=== PATIENT | male | born 1945 | race Hispanic/Latino ===

== ENCOUNTER 2019-02-24 08:05 | Day surgery (SDC) | payer MEDICARE, OTHER ==
[2019-02-24] MEDS ORDERED: SODIUM CHLORIDE 0.9% 1000 ML 1,000 ML IV SCH (08:45)
[2019-02-24] MEDS ORDERED: PROPOFOL 200 MG/20 ML VIAL IV ONE (09:25)
[2019-02-24] MEDS ORDERED: SODIUM CHLORIDE 0.9% 1000 ML 1,000 ML ONE (09:28)
[2019-02-24 09:39] LABS: INR 1.64 (0.87-1.13)
[2019-02-24 09:40] LABS: Partial Thromboplastin Time 33.8 Sec. (24.2-36.6)
[2019-02-24 09:47] LABS: BUN/Creatinine Ratio 23; Blood Urea Nitrogen 23 mg/dL (9-20); Calcium 8.7 mg/dL (8.4-10.2); Hemolysis Index 3
--- NOTE | 2019-02-24 09:58 | Anesthesia Day of Surgery ---
Anesthesia Day of Surgery - Day of Surgery Patient Examined: Yes Patient H&P Reviewed: Yes Patient is NPO: Yes Beta Blockers: Yes
[2019-02-24 10:01] LABS: Basophils # (Auto) 0.1 K/mm3 (0.0-0.1); Basophils % (Auto) 0.8 % (0.0-1.8); Eosinophils # (Auto) 0.1 K/mm3 (0.0-0.4); Eosinophils % (Auto) 1.4 % (0.0-4.3); Hematocrit 34.5 % (35.5-45.6); Hemoglobin 10.8 gm/dl (11.8-15.2); Lymphocytes # (Auto) 1.1 K/mm3 (1.2-5.4); Lymphocytes % (Auto) 18.2 % (13.4-35.0); Mean Corpuscular HGB Conc 31 % (32-34); Mean Corpuscular Volume 78 fl (84-94); Monocytes # (Auto) 0.7 K/mm3 (0.0-0.8); Monocytes % (Auto) 11.8 % (0.0-7.3); Platelet Count 226 K/mm3 (140-440); Red Blood Count 4.43 M/mm3 (3.65-5.03)
--- NOTE | 2019-02-24 10:01 | Anesthesia Consultation ---
Anesthesia Consult and Med Hx Date of service: 02/24/19 - Airway Anesthetic Teeth Evaluation: Chipped, Crowns ROM Head & Neck: Adequate Mental/Hyoid Distance: Adequate Mallampati Class: Class II Intubation Access Assessment: Probably Good - Pre-Operative Health Status ASA Pre-Surgery Classification: ASA3 Proposed Anesthetic Plan: General, MAC - Pulmonary Hx Smoking: No Hx Respiratory Symptoms: Yes (LYONS from A-Fib) - Cardiovascular System Hx Hypertension: Yes (ECHO [id number] EF 50%) Hx Cardia Arrhythmia: Yes (A-Fib) Hx Valvular Heart Disease: Yes (Had AVR and MV repair [id number]) Hx Heart Murmur: Yes - Central Nervous System Hx Psychiatric Problems: No - Other Systems Hx Alcohol Use: Yes Hx Cancer: Yes
[2019-02-24 10:03] LABS: Red Cell Distribution Width 20.7 % (13.2-15.2)
[2019-02-24] MEDS ORDERED: LIDOCAINE MPF (2%) 20 MG/1 ML VIAL 5 ML ONE (10:30)
--- NOTE | 2019-02-24 11:27 | Post Anesthesia Evaluation ---
- Post Anesthesia Evaluation Patient Participated: Yes Airway Patent: Yes Stable Respiratory Function: Yes Nausea/Vomiting: No Temp > 96.8F: Yes Pain Manageable: Yes Adequeate Hydration: Yes Anesthesia Complications: No Block Receding Appropriately: Not Applicable Patient on Ventilator: No
--- NOTE | 2019-02-24 12:03 | Cardiac Catherization Report ---
REFERRING PHYSICIAN: Pino Francis MD. INDICATION FOR PROCEDURE: The patient is an exceedingly pleasant 73-year-old gentleman who lives in [place] who saw him yesterday in the office having symptomatic atrial fibrillation with controlled ventricular response. Amiodarone and beta blockers were increased last week by Dr. Blackmon and yet he is still symptomatic. He has been on systemic anticoagulation in the form of Eliquis uninterrupted for the past 2 months. I decided to proceed with cardioversion. Risks, benefits, and alternatives discussed. PROCEDURE IN DETAIL: The patient was brought into the lab in a postabsorptive state. Anesthesia was present. Once adequate anesthesia is achieved, we used 200 biphasic joules x 1. Successful resumption of sinus rhythm. There were no immediate complications. The patient to be recovered by Anesthesia. EKG performed. No untoward event. CONCLUSIONS: Successful electrical cardioversion of atrial fibrillation with resumption of sinus rhythm without evident complication. JOB# [id number] RAEGAN/JOSE LUIS
[2019-02-24 12:06] VITALS: BP 145/91
== END 2019-02-24 12:45 | disposition home or self-care (01) ==
LOC: CATHLABREC 08:05
PROVIDERS: ATTEND Internal Medicine
DX: I48.91 Unspecified atrial fibrillation (principal); I42.9 Cardiomyopathy, unspecified; I10 Essential (primary) hypertension; Z72.89 Other problems related to lifestyle; Z95.2 Presence of prosthetic heart valve; Z79.82 Long term (current) use of aspirin; Z79.899 Other long term (current) drug therapy; Z98.49 Cataract extraction status, unspecified eye; Z85.89 Personal history of malignant neoplasm of other organs and systems; Z98.890 Other specified postprocedural states
CPT/HCPCS: 36415; 80048; 85025; 85610; 85730; 92960; 93005; 93010; J2704; J7030